=== PATIENT | male | born 1990 | race Caucasian/White ===

== ENCOUNTER → 2021-08-14 | Day surgery (SDC) | payer OTHER ==
[~2021-08-14] VITALS: Ht 182.9 cm; Wt 153.3 kg
[~2021-08-14] MED LIST: COZAAR50 MG PO; IRON325 M1 PO; PRILOSEC20 MG PO
== END | disposition home or self-care (01) ==
LOC: FAS 07:02
DX: D64.9 Anemia, unspecified (principal); R19.5 Other fecal abnormalities; I10 Essential (primary) hypertension; K21.9 Gastro-esophageal reflux disease without esophagitis; G47.30 Sleep apnea, unspecified; F17.200 Nicotine dependence, unspecified, uncomplicated; Z99.89 Dependence on other enabling machines and devices; Z80.0 Family history of malignant neoplasm of digestive organs; Z79.899 Other long term (current) drug therapy; Z82.49 Family history of ischemic heart disease and other diseases of the circulatory system; Z78.9 Other specified health status
CPT/HCPCS: J2250; J2704; J7120